=== PATIENT | female | born 1995 | race Caucasian/White ===

== ENCOUNTER 2023-12-17 11:19 | Outpatient (CLI) | payer BC, MEDICAID, SELFPAY ==
--- NOTE | 2023-12-17 11:23 | US_ITS ---
WS: [id number] ULTRASOUND BILATERAL BREAST, Limited HISTORY: LUMPS OF BREAST COMPARISON: None available. TECHNIQUE: 2-D and Doppler. Bilateral palpable areas within each breast. Ultrasound is directed to the palpable areas as by the p atient. There are no suspicious masses or areas of shadowing. No distortion or skin thickening. There is a small duct LEFT breast retroareolar measuring 1.0 x 0.4 x 0.3 cm. US/US breast BI limited* [id number] IMPRESSION: BI-RADS: 2- Benign FOLLOW-UP: See Report No additional imaging necessary. No abnormality is noted within either breast.
== END 2023-12-17 11:20 | disposition home or self-care (01) ==
LOC: RAD 11:20
PROVIDERS: PCP Nurse Practitioner Women's Health; Visit Provider Nurse Practitioner Women's Health
DX: N60.42 Mammary duct ectasia of left breast (principal); N64.4 Mastodynia
CPT/HCPCS: 76642

== ENCOUNTER 2024-01-17 07:59 | Outpatient (CLI) | payer BC, MEDICAID, SELFPAY ==
--- NOTE | 2024-01-17 08:26 | US_ITS ---
WS: [id number] EARLY OBSTETRICAL ULTRASOUND (<14 WEEKS). HISTORY: ENCOUNTER FOR SUPERVISION OF OTHER NORMAL COMPARISON: None available. Only transabdominal imaging submitted. Single intrauterine gestational sac is identified. Cardiac activity at 157 BPM. [place]-rump length lesli sures 6.2 cm which corresponds to a gestation of 12w4d. Normal-appearing yolk sac and amnion demonstr ated. No subchorionic hemorrhage. Neither ovary identified. No free fluid. US/US OB <= 14 weeks fetus [id number] IMPRESSION: 1. Single intrauterine gestation of 12w4d with an EDC of 07/27/2024. 2. Cardiac activity present.
== END 2024-01-17 08:00 | disposition home or self-care (01) ==
PROVIDERS: PCP Nurse Practitioner Women's Health; Visit Provider Family Medicine
DX: Z34.81 Encounter for supervision of other normal pregnancy, first trimester (principal)
CPT/HCPCS: 76801

== ENCOUNTER 2024-03-03 13:18 | Outpatient (CLI) | payer BC, MEDICAID, SELFPAY ==
--- NOTE | 2024-03-03 13:24 | USR_ITS ---
PROCEDURE INFORMATION: Exam: US After First Trimester, Transabdominal Exam date and time: 03/03/2024 1:29 PM Age: 28 years old Clinical indication: Screening exam; Routine US, uterus; Additional info: Encounter for supervision of other normal LABS AND CLINICAL REPORTS: Gestational age (Established): 19 w 1 d Estimated due date (Established): 07/27/2024 TECHNIQUE: Imaging protocol: Real-time transabdominal obstetrical ultrasound of the maternal pelvis and a second or third trimester with image documentation. COMPARISON: US OB <= 14 weeks fetus [id number] 01/17/2024 8:30 AM FINDINGS: Gestation: Single live intrauterine gestation. heart rate: 167 bpm. presentation and position: Cephalic. Placenta: Unremarkable. No subchorionic bleed. Placenta is posterior. Amniotic fluid (Qualitative): Amniotic fluid is normal for gestational age. ANATOMY: midline falx: Normal cerebellum: Normal lateral ventricles: Normal cisterna magna: Normal choroid plexus: Normal face: Limited nose/lips and profile due to position heart four-chamber view, heart size and position: Limited heart views related to position with spine up. Four-chamber heart is suggested. heart right ventricular outflow tract: Unremarkable as visualized heart left ventricular outflow tract: Unremarkable as visualized kidneys: Normal as visualized stomach: Normal as visualized urinary bladder: Normal as visualized spine: Normal as visualized Umbilical cord and insertion: Unremarkable. upper limbs: Unremarkable. lower limbs: Unremarkable. external genitalia: Female gestation suggested. BIOMETRY: Gestational age (AUA): 19 weeks 0 days Estimated due date (AUA): 07/28/2024 Estimated weight: 275.86 g. (10 oz) EFW 45 percentile. Biparietal diameter (BPD): 4.23 cm. EGA (BPD) is 18 w 6 d. 35.6 % percentile Head circumference (HC): 15.86 cm. EGA (HC) is 18 w 5 d. 23.1 % percentile Abdominal circumference (AC): 13.37 cm. EGA (AC) is 18 w 6 d. 35.6 % percentile Femur length (FL): 3.09 cm. EGA (FL) is 19 w 4 d. 59.5 % percentile HC/AC: 1.19. (Normal range: 1.09 - 1.26) FL/HC: 19.48. (Normal range: 16.1 - 18.3) FL/BPD: 73.05 FL/AC: 23.11 MATERNAL: Cervix: Cervical length measures 5.9 cm. US/US OB >= 14 weeks fetus [id number] IMPRESSION: 1. Single intrauterine in the cephalic position with heart rate 167 bpm. 2. Posterior placenta, unremarkable. 3. Average ultrasound age 19 weeks 0 days with [facility] 07/28/2024. EFW 275.86 g, 45 percentile. 4. Limited heart views as well as nose/lips and profile due to position. Otherwise unremarkable.
== END 2024-03-03 13:19 | disposition home or self-care (01) ==
LOC: RAD 13:19
PROVIDERS: PCP Nurse Practitioner Women's Health; Visit Provider Family Medicine
DX: Z34.81 Encounter for supervision of other normal pregnancy, first trimester (principal); Z3A.19 19 weeks gestation of pregnancy
CPT/HCPCS: 76805

== ENCOUNTER 2024-03-27 10:04 | Outpatient (CLI) | payer BC, MEDICAID, SELFPAY ==
--- NOTE | 2024-03-27 10:06 | USR_ITS ---
PROCEDURE INFORMATION: Exam: US , Limited Exam date and time: 03/27/2024 10:20 AM Age: 28 years old Clinical indication: Screening exam; Routine US, uterus; Additional info: Encounter for other screening TECHNIQUE: Imaging protocol: Real-time ultrasound of the maternal uterus with image documentation. Exam focused on the clinical indication. COMPARISON: US OB >= 14 weeks fetus [id number] 03/03/2024 1:29 PM FINDINGS: Gestation: Single intrauterine gestation. heart rate: 163 bpm. presentation and position: Transverse position. Placenta: Amniotic fluid volume is subjectively normal. Limited visualization of posterior grade 1 placenta. ANATOMY: face: upper lip and nose are normal on coronal plane. facial profile is normal. heart four-chamber view, heart size and position: Normal 4 chamber view, size and position. heart right ventricular outflow tract: right ventricular outflow tract is normal. heart left ventricular outflow tract: left ventricular outflow tract is normal. spine: The spine is obscured by position. MATERNAL: Cervix: The cervix is poorly visualized due to obscuration by posterior acoustic shadowing. The position of the distal placental margin relative to the endocervical os is not established on this exam. US/US OB limited [id number] IMPRESSION: 1. Single intrauterine gestation. cardiac activity is present. 2. Limited anatomic evaluation as above. No visible anomaly.
== END 2024-03-27 10:05 | disposition home or self-care (01) ==
LOC: RAD 10:04
PROVIDERS: PCP Family Medicine; Visit Provider Family Medicine
DX: Z36.2 Encounter for other antenatal screening follow-up (principal); Z3A.14 14 weeks gestation of pregnancy
CPT/HCPCS: 76815